=== PATIENT | male | born 1990 | race Caucasian/White ===

== ENCOUNTER → 2017-07-14 | Outpatient (CLI) | payer OTHER | END | disposition home or self-care (01) | LOC: CFH 06:52 | PROVIDERS: ATTEND Physical Medicine & Rehabilitation | DX: M51.26 Other intervertebral disc displacement, lumbar region (principal); M48.061 Spinal stenosis, lumbar region without neurogenic claudication; M47.896 Other spondylosis, lumbar region | CPT/HCPCS: 72148 ==

== ENCOUNTER → 2017-07-20 | Outpatient (CLI) | payer OTHER | LOC: RAD 17:54 | PROVIDERS: ATTEND Physical Medicine & Rehabilitation | DX: M47.896 Other spondylosis, lumbar region (principal); M54.41 Lumbago with sciatica, right side; M79.1 Myalgia | CPT/HCPCS: 72131 ==

== ENCOUNTER → 2017-07-31 | Outpatient (CLI) | payer OTHER ==
[~2017-07-31] MED LIST: CYCL-259 PO; MELO15TA24 PO
[2017-07-31 12:29] LABS: BASOPHILS # (AUTO) 0.02 x10^3/uL (0-0.1); BASOPHILS % (AUTO) 0 % (0-1); EOSINOPHILS # (AUTO) 0.04 x10^3/uL (0-0.4); EOSINOPHILS % (AUTO) 1 % (1-7); LYMPHOCYTES # (AUTO) 1.22 x10^3/uL (1-3.4); LYMPHOCYTES % (AUTO) 28 % (22-44); MD NO; MEAN CORPUSCULAR HEMOGLOBIN 29.3 pg (27.5-34.5); MEAN CORPUSCULAR HGB CONC 33.5 g/dL (33.2-36.2); MEAN CORPUSCULAR VOLUME 87.3 fL (81-97); MEAN PLATELET VOLUME 7.7 fL (7.4-10.4); MONOCYTES % (AUTO) 9 % (2-9); NEUTROPHILS # (AUTO) 2.64 x10^3/uL (1.8-6.8); NEUTROPHILS % (AUTO) 61 % (42-75); PLATELET COUNT 241 x10^3/uL (130-400); RED BLOOD COUNT 5.78 x10^6/uL (4.38-5.82)
[2017-07-31 12:29] LABS: MICROSCOPIC AUTO
[2017-07-31 12:30] LABS: CULTURE INDICATED? NO
[2017-07-31 12:34] LABS: INTERNATIONAL NORMALIZED RATIO 0.98 (0.93-1.1); PROTHROMBIN TIME 10.1 Seconds (9.6-11.5)
[2017-07-31 12:38] LABS: ALANINE AMINOTRANSFERASE 39 U/L (12-78); ALBUMIN 4.3 g/dL (3.4-5.0); ANION GAP 5 mmol/L (5-15); CALCIUM 8.9 mg/dL (8.5-10.1); CHLORIDE 105 mmol/L (98-107); CREATININE 0.96 mg/dL (0.7-1.3)
[2017-07-31 12:40] LABS: ALKALINE PHOSPHATASE 73 U/L (45-117); BILIRUBIN,TOTAL 0.5 mg/dL (0.2-1.0); TOTAL PROTEIN 7.7 g/dL (6.4-8.2)
== END | disposition home or self-care (01) ==
LOC: STAR 11:49
PROVIDERS: ATTEND Orthopaedic Surgery Orthopaedic Surgery of the Spine
DX: Z01.818 Encounter for other preprocedural examination (principal); M51.26 Other intervertebral disc displacement, lumbar region; M48.061 Spinal stenosis, lumbar region without neurogenic claudication
CPT/HCPCS: 36415; 71046; 80053; 81001; 85025; 85610; 85730; 93005

== ENCOUNTER 2017-08-04 05:41 | Day surgery (SDC) | payer OTHER ==
[~2017-08-04] VITALS: Ht 185.4 cm; Wt 110.3 kg
[2017-08-04] MEDS ORDERED: LACTATED RINGERS 1,000 ML IV SCH (06:16)
[2017-08-04 06:17] VITALS: BP 131/94
[2017-08-04] MEDS ORDERED: LIDOCAINE/PF 0.5% ,50ML ONE (06:37)
[2017-08-04] MEDS ORDERED: BUPIVACAINE/PF 0.25% ONE (06:37)
[2017-08-04] MEDS ORDERED: VANCOMYCIN 1,000 MG ONE ×2 (06:38→09:37)
[2017-08-04] MEDS ORDERED: THROMBIN 5,000 UNIT VIAL TP ONE (06:38)
[2017-08-04] MEDS ORDERED: EPINEPHRINE 1 MG/ML, 1ML ONE (06:38)
[2017-08-04] MEDS ORDERED: MIDAZOLAM 1 MG/ML, 2ML ONE (06:54)
[2017-08-04] MEDS ORDERED: PROPOFOL 10 MG/ML, 20ML ONE (06:54)
[2017-08-04] MEDS ORDERED: ROCURONIUM 10 MG/ML,10ML ONE (06:54)
[2017-08-04] MEDS ORDERED: CEFAZOLIN 1,000 MG ONE ×2 (06:54→06:55)
[2017-08-04] MEDS ORDERED: FENTANYL PF 250 MCG/5ML ONE (06:54)
[2017-08-04] MEDS ORDERED: GABAPENTIN 300 MG CAPSULE ONE ×2 (07:05)
[2017-08-04] MEDS ORDERED: ACETAMINOPHEN 500 MG TABLET ONE ×2 (07:06)
[2017-08-04] MEDS ORDERED: GLYCOPYRROLATE 0.2MG/1ML, 5ML ONE (07:26)
[2017-08-04] MEDS ORDERED: NEOSTIGMINE 1 MG/ML, 10ML ONE (07:26)
[2017-08-04] MEDS ORDERED: ALBUTEROL SULFATE 2.5 MG/3 ML NPPB PRN (07:30)
[2017-08-04] MEDS ORDERED: MEPERIDINE/PF 25MG/0.5ML IVPush PRN (07:30)
[2017-08-04] MEDS ORDERED: DIAZEPAM 5 MG/ML, 2ML IVPush PRN (07:30)
[2017-08-04] MEDS ORDERED: FENTANYL PF 100 MCG/2ML IV PRN (07:30)
[2017-08-04] MEDS ORDERED: ONDANSETRON 2MG/ML, 2ML IVPush PRN ×2 (07:30→12:00)
[2017-08-04] MEDS ORDERED: PROMETHAZINE 12.5 MG SUPP PR PRN (07:30)
[2017-08-04] MEDS ORDERED: EPHEDRINE 50 MG/ML, 1ML IVPush PRN (07:30)
[2017-08-04] MEDS ORDERED: hydrALAzine 20 MG/ML, 1ML IV PRN (07:30)
[2017-08-04] MEDS ORDERED: OXYcodone 5 MG/5 ML ORAL.SOL UDC PO PRN (07:30)
[2017-08-04] MEDS ORDERED: HYDROmorphone 1 MG/ML, 1ML IV PRN (07:30)
[2017-08-04] MEDS ORDERED: LABETALOL 5MG/ML, 20ML IV PRN (07:30)
[2017-08-04] MEDS ORDERED: METOPROLOL 1 MG/ML, 5ML IV PRN (07:30)
[2017-08-04] MEDS ORDERED: PROPOFOL 50 ML ONE (08:02)
[2017-08-04] MEDS ORDERED: ONDANSETRON 2MG/ML, 2ML ONE ×2 (09:04→10:35)
[2017-08-04] MEDS ORDERED: DEXAMETHASONE 4 MG/ML, 1ML ONE ×2 (09:04)
[2017-08-04] MEDS ORDERED: KETOROLAC 30 MG/1 ML ONE ×2 (09:04)
[2017-08-04] MEDS ORDERED: VANCOMYCIN 1,000 MG IVPush ONE (09:06)
[2017-08-04] MEDS ORDERED: OXYcodone 5 MG/5 ML ORAL.SOL UDC ONE ×2 (10:28→10:30)
[2017-08-04] MEDS ORDERED: FENTANYL PF 100 MCG/2ML ONE (10:48)
[2017-08-04] MEDS ORDERED: HYDROcodone/APAP 10/325 MG TABLET PO PRN (12:00)
[2017-08-04] MEDS ORDERED: morphine SULFATE 10 MG/ML, 1ML IVPush PRN (12:00)
[2017-08-04] MEDS ORDERED: DIAZEPAM 5 MG TABLET PO PRN (12:00)
[2017-08-04] MEDS ORDERED: HYDROcodone/APAP 10/325 MG TABLET ONE (12:02)
== END 2017-08-04 15:35 ==
LOC: OUT 05:41
PROVIDERS: ATTEND Orthopaedic Surgery Orthopaedic Surgery of the Spine
DX: M48.061 Spinal stenosis, lumbar region without neurogenic claudication (principal); Z72.89 Other problems related to lifestyle; Z98.890 Other specified postprocedural states
CPT/HCPCS: 63047; 63048; 72100; J0171; J0690; J1100; J1885; J2001; J2250; J2405; J2704; J2710; J3010; J3370; J3490; J7120